=== PATIENT | male | born 1955 | race Caucasian/White ===

== ENCOUNTER 2017-05-10 09:22 | Emergency (ER) | payer OTHER | END 2017-05-10 11:33 | disposition hospice, home (50) | LOC: FER 09:22 | DX: S13.4XXA Sprain of ligaments of cervical spine, initial encounter (principal); S00.412A Abrasion of left ear, initial encounter; F17.210 Nicotine dependence, cigarettes, uncomplicated; V49.40XA Driver injured in collision with unspecified motor vehicles in traffic accident, initial encounter; Y92.410 Unspecified street and highway as the place of occurrence of the external cause | CPT/HCPCS: 71010; 72050; 99284 ==